=== PATIENT | male | born 1960 ===

== ENCOUNTER 2018-07-11 06:38 | Inpatient (IN) ==
[2018-07-11] MEDS ORDERED: ONDANSETRON 4 MG/2 ML VIAL IV PRN (08:43)
[2018-07-11] MEDS ORDERED: GLUCAGON 1 MG VIAL IM PRN (08:43)
[2018-07-11] MEDS ORDERED: DEXTROSE 50% 25 GM/50 ML VIAL IV PRN (08:43)
[2018-07-11] MEDS ORDERED: FUROSEMIDE 40 MG/4 ML VIAL IV ONE (08:47)
[2018-07-11 09:19] LABS: ABG HCO3 30.2 MMOL/L (20-26); ABG Oxygen Saturation 79.3 % (95-100); ABG PH 7.251 (7.35-7.45); ABG TCO2 34.6 MMOL/L (23-27)
[2018-07-11 09:22] LABS: ABG PCO2 91.3 MM HG (35-48)
[2018-07-11 09:41] LABS: Basophils % 0.6 % (0.0-0.8); Eosinophils # 0.1 10*3/uL (0.0-0.87); Eosinophils % 2.2 % (0.00-10.9); Hemoglobin 16.7 GM/DL (14.0-18.0); Immature Granulocytes % 0.4 %; Immature Granulocytes Absolute 0.02 #; Lymphocytes % 19.4 % (21.2-54.2); Mean Corpuscular HGB Conc 31.5 GM/DL (32-36); Mean Corpuscular Hemoglobin 29 PG (27-34); Mean Corpuscular Volume 92.5 FL (87-102); Mean Platelet Volume 9.5 FL (9.6-12.0); Monocytes # 0.7 10*3/uL (0.11-0.8); Monocytes % 13.6 % (1.7-12.7); Neutrophils # 3.2 10*3/uL (1.4-7.4); Neutrophils % 63.8 % (38.7-73.9); Platelet Count 172 T/CUMM (130-400); Red Blood Count 5.73 MC/CUMM (3.8-5.5); Red Cell Distribution Width 18.5 % (9.3-17.3)
[2018-07-11] MEDS: cefTRIAXone 1,000 MG in SYRINGE 1 EACH IV SCH (10:03)
[2018-07-11] MEDS: PANTOPRAZOLE 40 MG TABLET PO SCH (10:04)
[2018-07-11] MEDS: guaiFENesin/DM ER 600-30 MG TABLET PO SCH ×2 (10:04→22:06)
[2018-07-11] MEDS: AZITHROMYCIN INJ 500 MG in SODIUM CHLORIDE 0.9% 250 ML IV SCH (10:04)
[2018-07-11] MEDS: ERYTHROMYCIN 0.5% OPHT OINT 3.5 GM TUBE BOTH EYES SCH ×4 (10:04→22:06)
[2018-07-11 10:23] LABS: Alanine Aminotransferase 30 U/L (16-61); Albumin 1.7 G/DL (3.4-5.0); Alkaline Phosphatase 109 U/L (45-117); Aspartate Amino Transferase 41 U/L (0-37); Bilirubin,Total < 0.39 MG/DL (0.2-1.0); Blood Urea Nitrogen 23 MG/DL (7-18); Calcium 8.2 MG/DL (8.5-10.1); Cholesterol 260 MG/DL (50-200); Glucose 183 MG/DL (74-106); HDL Cholesterol 102 MG/DL (40-60); Osmolality,Calculated 278.1 MOS/KG (273-304); Potassium 3.9 MMOL/L (3.5-5.1); Risk Ratio 2.55; Sodium 135 MMOL/L (136-145); Total Protein 6.5 G/DL (6.4-8.3); Triglycerides 89 MG/DL (2-150); VLDL CHOLESTEROL 17.8 MG/DL
[2018-07-11 11:01] LABS: Apearance,Urine Slightly Hazy (Clear); Bacteria,Urine Occasional /HPF (Few); Bilirubin,Urine Negative (Negative); Blood, Urine Moderate mg/dL (Negative); Glucose,Urine (UA) 150 mg/dL (Negative); Hyaline Casts,Urine 5 /LPF (0-3); Ketones,Urine Negative (Negative); Nitrite,Urine Negative (Negative); Protein,Urine >=500 MG/DL; RBC,Urine 49 /HPF (0-4); Urine Color Yellow (Yellow); Urine Specific Gravity 1.014 (1.001-1.035); Urine Urobilinogen < 2.0 EU/DL (0.2-1.0); WBC,Urine 9 /HPF (0-6)
[2018-07-11 12:10] LABS: Protein/Creatinine Ratio,Urine 9.4 RATIO
[2018-07-11 12:40] LABS: Allen Test Positive; Pt O2 Delivery Device BIPAP
[2018-07-11 12:41] LABS: ABG Base Excess 11.2 MMOL/L (-2.5-2.5); ABG HCO3 34.5 MMOL/L (20-26); ABG Oxygen Saturation 82.7 % (95-100); ABG PH 7.349 (7.35-7.45); ABG TCO2 35.5 MMOL/L (23-27)
[2018-07-11 12:46] LABS: ABG PCO2 75.7 MM HG (35-48)
[2018-07-11] MEDS: ALBUTEROL/IPRATROPIUM 3 ML NEB RESP TX SCH ×2 (14:50→19:49)
[2018-07-11] MEDS: INSULIN LISPRO 100 UNIT/ML SUBCUT SCH ×3 (14:51→22:04)
[2018-07-11] MEDS: LACTULOSE 20 GM/30 ML UDCUP PO SCH ×3 (14:51→22:08)
[2018-07-11 14:56] LABS: ABG Base Excess 10.3 MMOL/L (-2.5-2.5); ABG HCO3 33.8 MMOL/L (20-26); ABG Oxygen Saturation 89.2 % (95-100); ABG PH 7.308 (7.35-7.45); ABG PO2 62.8 MM HG (80-95); Allen Test Positive
[2018-07-11 15:01] LABS: ABG PCO2 84.4 MM HG (35-48)
[2018-07-11] MEDS ORDERED: hydrALAZINE 20 MG/1 ML VIAL IV PRN (15:14)
[2018-07-11 17:59] LABS: ABG Base Excess 11.9 MMOL/L (-2.5-2.5); ABG HCO3 35.4 MMOL/L (20-26); ABG Oxygen Saturation 87.5 % (95-100); ABG PH 7.374 (7.35-7.45); ABG PO2 55.3 MM HG (80-95); ABG TCO2 35.3 MMOL/L (23-27); Allen Test Positive; Pt O2 Delivery Device BIPAP
[2018-07-11] MEDS: ENOXAPARIN 40 MG/0.4 ML SYRINGE SUBCUT SCH (22:04)
[2018-07-12] MEDS: ALBUTEROL/IPRATROPIUM 3 ML NEB RESP TX SCH ×4 (01:18→19:35)
[2018-07-12] MEDS: LACTULOSE 20 GM/30 ML UDCUP PO SCH ×5 (03:07→21:32)
[2018-07-12 04:53] LABS: ABG Base Excess 13.2 MMOL/L (-2.5-2.5); ABG HCO3 36.8 MMOL/L (20-26); ABG Oxygen Saturation 89.4 % (95-100); ABG PCO2 60.6 MM HG (35-48); ABG PH 7.441 (7.35-7.45); ABG PO2 57.9 MM HG (80-95); ABG TCO2 34.3 MMOL/L (23-27); Allen Test Positive; Pt O2 Delivery Device BIPAP
[2018-07-12 05:24] LABS: Basophils % 0.3 % (0.0-0.8); Eosinophils # 0.1 10*3/uL (0.0-0.87); Eosinophils % 0.8 % (0.00-10.9); Hematocrit 49.5 VOL% (42.0-52.0); Hemoglobin 16.2 GM/DL (14.0-18.0); Immature Granulocytes % 0.1 %; Immature Granulocytes Absolute 0.01 #; Lymphocytes % 13.8 % (21.2-54.2); Mean Corpuscular HGB Conc 32.7 GM/DL (32-36); Mean Corpuscular Hemoglobin 29 PG (27-34); Mean Platelet Volume 9.3 FL (9.6-12.0); Monocytes % 13.8 % (1.7-12.7); Neutrophils # 5.2 10*3/uL (1.4-7.4); Neutrophils % 71.2 % (38.7-73.9); Platelet Count 177 T/CUMM (130-400); Red Blood Count 5.56 MC/CUMM (3.8-5.5); Red Cell Distribution Width 17.9 % (9.3-17.3); White Blood Count 7.3 T/CUMM (4-12)
[2018-07-12 05:41] LABS: Albumin 1.6 G/DL (3.4-5.0); Bilirubin,Total 0.5 MG/DL (0.2-1.0); Calcium 8.4 MG/DL (8.5-10.1); Osmolality,Calculated 281.4 MOS/KG (273-304); Potassium 3.6 MMOL/L (3.5-5.1); Total Protein 5.8 G/DL (6.4-8.3)
[2018-07-12] MEDS: guaiFENesin/DM ER 600-30 MG TABLET PO SCH ×2 (08:25→21:32)
[2018-07-12] MEDS: PANTOPRAZOLE 40 MG TABLET PO SCH (08:25)
[2018-07-12] MEDS: cefTRIAXone 1,000 MG in SYRINGE 1 EACH IV SCH (08:25)
[2018-07-12] MEDS: INSULIN LISPRO 100 UNIT/ML SUBCUT SCH ×4 (08:26→21:32)
[2018-07-12] MEDS: ERYTHROMYCIN 0.5% OPHT OINT 3.5 GM TUBE BOTH EYES SCH ×4 (08:27→21:32)
[2018-07-12] MEDS ORDERED: AZITHROMYCIN INJ 500 MG in SODIUM CHLORIDE 0.9% 250 ML IV SCH (10:30)
[2018-07-12] MEDS: AZITHROMYCIN INJ 500 MG in SODIUM CHLORIDE 0.9% 250 ML IV SCH (11:39)
[2018-07-12] MEDS: LISINOPRIL 10 MG TABLET PO SCH (12:14)
[2018-07-13] MEDS: ALBUTEROL/IPRATROPIUM 3 ML NEB RESP TX SCH ×4 (01:50→19:57)
[2018-07-13 05:22] LABS: Basophils % 0.3 % (0.0-0.8); Eosinophils # 0.1 10*3/uL (0.0-0.87); Eosinophils % 0.6 % (0.00-10.9); Hematocrit 45.6 VOL% (42.0-52.0); Hemoglobin 14.8 GM/DL (14.0-18.0); Immature Granulocytes % 0.4 %; Immature Granulocytes Absolute 0.03 #; Lymphocytes # 1.3 10*3/uL (1.4-4.0); Lymphocytes % 16.1 % (21.2-54.2); Mean Corpuscular HGB Conc 32.5 GM/DL (32-36); Mean Corpuscular Hemoglobin 29 PG (27-34); Mean Corpuscular Volume 89.8 FL (87-102); Mean Platelet Volume 9.3 FL (9.6-12.0); Monocytes # 1.1 10*3/uL (0.11-0.8); Monocytes % 14.3 % (1.7-12.7); Neutrophils # 5.4 10*3/uL (1.4-7.4); Neutrophils % 68.3 % (38.7-73.9); Platelet Count 178 T/CUMM (130-400); Red Blood Count 5.08 MC/CUMM (3.8-5.5); Red Cell Distribution Width 17.6 % (9.3-17.3); White Blood Count 7.9 T/CUMM (4-12)
[2018-07-13 05:32] LABS: INR 0.9; PT Patient Result 10.3 SECS
[2018-07-13 05:47] LABS: Albumin 1.5 G/DL (3.4-5.0); Calcium 7.8 MG/DL (8.5-10.1); Osmolality,Calculated 275.8 MOS/KG (273-304); Potassium 3.2 MMOL/L (3.5-5.1); Total Protein 5.6 G/DL (6.4-8.3)
[2018-07-13] MEDS: INSULIN LISPRO 100 UNIT/ML SUBCUT SCH ×4 (07:59→21:41)
[2018-07-13] MEDS ORDERED: PROPOFOL 200 MG/20 ML VIAL IV ONE (08:04)
[2018-07-13] MEDS ORDERED: LIDOCAINE 1% 5 ML VIAL ONE (08:04)
[2018-07-13] MEDS: cefTRIAXone 1,000 MG in SYRINGE 1 EACH IV SCH (09:01)
[2018-07-13] MEDS: POTASSIUM CHLORIDE 20 MEQ TABLET PO SCH ×3 (09:05→21:43)
[2018-07-13] MEDS: PANTOPRAZOLE 40 MG TABLET PO SCH (09:05)
[2018-07-13] MEDS: guaiFENesin/DM ER 600-30 MG TABLET PO SCH ×2 (09:05→21:31)
[2018-07-13] MEDS: ERYTHROMYCIN 0.5% OPHT OINT 3.5 GM TUBE BOTH EYES SCH (09:06)
[2018-07-13] MEDS: GENTAMICIN 0.3% OPH SOLN 5 ML BOTTLE BOTH EYES SCH ×2 (13:33→18:20)
[2018-07-13] MEDS: LACTULOSE 20 GM/30 ML UDCUP PO SCH ×3 (15:31→21:33)
[2018-07-13] MEDS: LISINOPRIL 10 MG TABLET PO SCH (15:44)
[2018-07-13] MEDS: AZITHROMYCIN 250 MG TABLET PO SCH (17:49)
[2018-07-13] MEDS ORDERED: POTASSIUM CHLORIDE 20 MEQ TABLET PO SCH (21:30)
[2018-07-13] MEDS: ENOXAPARIN 40 MG/0.4 ML SYRINGE SUBCUT SCH (21:32)
[2018-07-14] MEDS: GENTAMICIN 0.3% OPH SOLN 5 ML BOTTLE BOTH EYES SCH ×4 (01:35→17:11)
[2018-07-14] MEDS: ALBUTEROL/IPRATROPIUM 3 ML NEB RESP TX SCH ×4 (01:42→19:50)
[2018-07-14 03:35] LABS: Basophils % 0.2 % (0.0-0.8); Eosinophils # 0.1 10*3/uL (0.0-0.87); Eosinophils % 1.5 % (0.00-10.9); Hematocrit 46.2 VOL% (42.0-52.0); Hemoglobin 14.8 GM/DL (14.0-18.0); Immature Granulocytes % 0.2 %; Immature Granulocytes Absolute 0.01 #; Lymphocytes # 0.8 10*3/uL (1.4-4.0); Lymphocytes % 12.5 % (21.2-54.2); Mean Corpuscular Hemoglobin 29 PG (27-34); Mean Corpuscular Volume 91.7 FL (87-102); Mean Platelet Volume 9.9 FL (9.6-12.0); Monocytes # 1.1 10*3/uL (0.11-0.8); Neutrophils # 4.6 10*3/uL (1.4-7.4); Neutrophils % 68.6 % (38.7-73.9); Platelet Count 138 T/CUMM (130-400); Red Blood Count 5.04 MC/CUMM (3.8-5.5); Red Cell Distribution Width 17.3 % (9.3-17.3); White Blood Count 6.7 T/CUMM (4-12)
[2018-07-14 04:06] LABS: Albumin 1.3 G/DL (3.4-5.0); Bilirubin,Total 0.5 MG/DL (0.2-1.0); Calcium 7.8 MG/DL (8.5-10.1); Osmolality,Calculated 274.1 MOS/KG (273-304); Potassium 3.8 MMOL/L (3.5-5.1); Total Protein 5.4 G/DL (6.4-8.3)
[2018-07-14 04:57] LABS: Band Neutrophils 3 % (0-10); Eosinophils 2 % (0-10); Lymphocytes 15 % (20-55); Platelet Estimate Decreased; Segmented Neutrophils 63 % (50-85); Total Cells Counted 100
[2018-07-14] MEDS: INSULIN LISPRO 100 UNIT/ML SUBCUT SCH ×4 (07:36→20:59)
[2018-07-14] MEDS: PANTOPRAZOLE 40 MG TABLET PO SCH (08:32)
[2018-07-14] MEDS: AZITHROMYCIN 250 MG TABLET PO SCH (08:32)
[2018-07-14] MEDS: guaiFENesin/DM ER 600-30 MG TABLET PO SCH ×2 (08:32→20:59)
[2018-07-14] MEDS: LACTULOSE 20 GM/30 ML UDCUP PO SCH ×3 (08:32→20:59)
[2018-07-14] MEDS: LISINOPRIL 10 MG TABLET PO SCH (08:32)
[2018-07-14] MEDS: cefTRIAXone 1,000 MG in SYRINGE 1 EACH IV SCH (08:33)
[2018-07-14] MEDS: ENOXAPARIN 40 MG/0.4 ML SYRINGE SUBCUT SCH (20:59)
[2018-07-15] MEDS: GENTAMICIN 0.3% OPH SOLN 5 ML BOTTLE BOTH EYES SCH ×4 (00:35→17:19)
[2018-07-15] MEDS: ALBUTEROL/IPRATROPIUM 3 ML NEB RESP TX SCH ×4 (01:02→19:24)
[2018-07-15 05:23] LABS: Basophils % 0.2 % (0.0-0.8); Eosinophils # 0.2 10*3/uL (0.0-0.87); Eosinophils % 2.7 % (0.00-10.9); Hemoglobin 14.2 GM/DL (14.0-18.0); Immature Granulocytes % 0.3 %; Immature Granulocytes Absolute 0.02 #; Lymphocytes % 16.2 % (21.2-54.2); Mean Corpuscular HGB Conc 31.6 GM/DL (32-36); Mean Corpuscular Hemoglobin 29 PG (27-34); Mean Corpuscular Volume 91.1 FL (87-102); Mean Platelet Volume 9.6 FL (9.6-12.0); Monocytes # 0.9 10*3/uL (0.11-0.8); Monocytes % 14.6 % (1.7-12.7); Neutrophils # 4.1 10*3/uL (1.4-7.4); Platelet Count 164 T/CUMM (130-400); Red Blood Count 4.94 MC/CUMM (3.8-5.5); Red Cell Distribution Width 17.1 % (9.3-17.3); White Blood Count 6.2 T/CUMM (4-12)
[2018-07-15 05:40] LABS: Albumin 1.4 G/DL (3.4-5.0); Bilirubin,Total 1.1 MG/DL (0.2-1.0); Calcium 8.3 MG/DL (8.5-10.1); Osmolality,Calculated 274.1 MOS/KG (273-304); Potassium 3.5 MMOL/L (3.5-5.1); Total Protein 5.6 G/DL (6.4-8.3)
[2018-07-15 05:49] LABS: INR 0.9; PT Patient Result 10.2 SECS
[2018-07-15] MEDS: INSULIN LISPRO 100 UNIT/ML SUBCUT SCH ×4 (08:06→22:56)
[2018-07-15] MEDS: PANTOPRAZOLE 40 MG TABLET PO SCH (08:18)
[2018-07-15] MEDS: guaiFENesin/DM ER 600-30 MG TABLET PO SCH ×2 (08:18→22:58)
[2018-07-15] MEDS: LACTULOSE 20 GM/30 ML UDCUP PO SCH ×3 (08:18→22:56)
[2018-07-15] MEDS: cefTRIAXone 1,000 MG in SYRINGE 1 EACH IV SCH (08:18)
[2018-07-15] MEDS: LISINOPRIL 10 MG TABLET PO SCH (08:18)
[2018-07-15] MEDS: AZITHROMYCIN 250 MG TABLET PO SCH (08:18)
[2018-07-15] MEDS: ENOXAPARIN 40 MG/0.4 ML SYRINGE SUBCUT SCH (22:57)
[2018-07-16] MEDS: GENTAMICIN 0.3% OPH SOLN 5 ML BOTTLE BOTH EYES SCH ×4 (00:17→18:06)
[2018-07-16] MEDS: ALBUTEROL/IPRATROPIUM 3 ML NEB RESP TX SCH ×4 (01:10→20:36)
[2018-07-16 05:19] LABS: Calcium 7.8 MG/DL (8.5-10.1); Osmolality,Calculated 277.1 MOS/KG (273-304); Potassium 3.9 MMOL/L (3.5-5.1)
[2018-07-16] MEDS: AZITHROMYCIN 250 MG TABLET PO SCH (10:33)
[2018-07-16] MEDS: INSULIN LISPRO 100 UNIT/ML SUBCUT SCH ×4 (10:34→21:17)
[2018-07-16] MEDS: guaiFENesin/DM ER 600-30 MG TABLET PO SCH ×2 (10:34→21:09)
[2018-07-16] MEDS: PANTOPRAZOLE 40 MG TABLET PO SCH (10:34)
[2018-07-16] MEDS: LISINOPRIL 10 MG TABLET PO SCH (10:34)
[2018-07-16] MEDS: LACTULOSE 20 GM/30 ML UDCUP PO SCH ×3 (10:34→18:06)
[2018-07-16] MEDS: cefTRIAXone 1,000 MG in SYRINGE 1 EACH IV SCH (10:34)
[2018-07-16] MEDS: ENOXAPARIN 40 MG/0.4 ML SYRINGE SUBCUT SCH (21:08)
[2018-07-16] MEDS: RIFAXIMIN 550 MG TABLET PO SCH (21:09)
[2018-07-17] MEDS: ALBUTEROL/IPRATROPIUM 3 ML NEB RESP TX SCH ×4 (01:38→19:41)
[2018-07-17] MEDS: GENTAMICIN 0.3% OPH SOLN 5 ML BOTTLE BOTH EYES SCH ×4 (01:56→18:20)
[2018-07-17] MEDS: LACTULOSE 20 GM/30 ML UDCUP PO SCH ×4 (02:04→18:20)
[2018-07-17] MEDS: INSULIN LISPRO 100 UNIT/ML SUBCUT SCH ×4 (08:58→20:37)
[2018-07-17] MEDS: cefTRIAXone 1,000 MG in SYRINGE 1 EACH IV SCH (09:45)
[2018-07-17] MEDS: LISINOPRIL 10 MG TABLET PO SCH (09:46)
[2018-07-17] MEDS: guaiFENesin/DM ER 600-30 MG TABLET PO SCH ×2 (09:46→20:38)
[2018-07-17] MEDS: AZITHROMYCIN 250 MG TABLET PO SCH (09:46)
[2018-07-17] MEDS: RIFAXIMIN 550 MG TABLET PO SCH ×2 (09:46→20:38)
[2018-07-17] MEDS: PANTOPRAZOLE 40 MG TABLET PO SCH (09:46)
[2018-07-17] MEDS: ENOXAPARIN 40 MG/0.4 ML SYRINGE SUBCUT SCH (20:37)
[2018-07-18] MEDS: LACTULOSE 20 GM/30 ML UDCUP PO SCH ×4 (00:08→17:49)
[2018-07-18] MEDS: GENTAMICIN 0.3% OPH SOLN 5 ML BOTTLE BOTH EYES SCH ×4 (00:08→17:49)
[2018-07-18] MEDS: ALBUTEROL/IPRATROPIUM 3 ML NEB RESP TX SCH ×4 (00:42→19:23)
[2018-07-18 05:43] LABS: Calcium 8.2 MG/DL (8.5-10.1); Osmolality,Calculated 281.5 MOS/KG (273-304); Potassium 3.6 MMOL/L (3.5-5.1)
[2018-07-18] MEDS: INSULIN LISPRO 100 UNIT/ML SUBCUT SCH ×4 (08:43→21:05)
[2018-07-18] MEDS: guaiFENesin/DM ER 600-30 MG TABLET PO SCH ×2 (09:27→21:03)
[2018-07-18] MEDS: LISINOPRIL 10 MG TABLET PO SCH (09:27)
[2018-07-18] MEDS: AZITHROMYCIN 250 MG TABLET PO SCH (09:27)
[2018-07-18] MEDS: cefTRIAXone 1,000 MG in SYRINGE 1 EACH IV SCH (09:27)
[2018-07-18] MEDS: PANTOPRAZOLE 40 MG TABLET PO SCH (09:27)
[2018-07-18] MEDS: RIFAXIMIN 550 MG TABLET PO SCH ×2 (09:27→21:03)
[2018-07-18] MEDS: ENOXAPARIN 40 MG/0.4 ML SYRINGE SUBCUT SCH (21:03)
[2018-07-19] MEDS: LACTULOSE 20 GM/30 ML UDCUP PO SCH ×4 (00:18→17:26)
[2018-07-19] MEDS: GENTAMICIN 0.3% OPH SOLN 5 ML BOTTLE BOTH EYES SCH ×5 (00:19→23:38)
[2018-07-19] MEDS: ALBUTEROL/IPRATROPIUM 3 ML NEB RESP TX SCH ×4 (01:04→20:27)
[2018-07-19 06:10] LABS: Calcium 8.2 MG/DL (8.5-10.1); Osmolality,Calculated 278.5 MOS/KG (273-304); Potassium 3.5 MMOL/L (3.5-5.1)
[2018-07-19] MEDS: LEVOTHYROXINE 25 MCG TABLET PO SCH (06:37)
[2018-07-19] MEDS: AZITHROMYCIN 250 MG TABLET PO SCH (09:30)
[2018-07-19] MEDS: guaiFENesin/DM ER 600-30 MG TABLET PO SCH ×2 (09:30→23:31)
[2018-07-19] MEDS: INSULIN LISPRO 100 UNIT/ML SUBCUT SCH ×4 (09:30→21:46)
[2018-07-19] MEDS: SPIRONOLACTONE 25 MG TABLET PO SCH ×2 (09:31→23:30)
[2018-07-19] MEDS: PANTOPRAZOLE 40 MG TABLET PO SCH (09:31)
[2018-07-19] MEDS: RIFAXIMIN 550 MG TABLET PO SCH ×2 (09:31→23:31)
[2018-07-19] MEDS: LISINOPRIL 10 MG TABLET PO SCH (09:31)
[2018-07-19] MEDS: ENOXAPARIN 40 MG/0.4 ML SYRINGE SUBCUT SCH (23:30)
[2018-07-20] MEDS: ALBUTEROL/IPRATROPIUM 3 ML NEB RESP TX SCH ×4 (00:29→19:17)
[2018-07-20] MEDS: LACTULOSE 20 GM/30 ML UDCUP PO SCH ×5 (00:56→23:52)
[2018-07-20 05:24] LABS: Basophils % 0.4 % (0.0-0.8); Eosinophils # 0.3 10*3/uL (0.0-0.87); Eosinophils % 5.4 % (0.00-10.9); Hematocrit 43.1 VOL% (42.0-52.0); Hemoglobin 13.7 GM/DL (14.0-18.0); Immature Granulocytes % 0.2 %; Immature Granulocytes Absolute 0.01 #; Lymphocytes % 18.8 % (21.2-54.2); Mean Corpuscular HGB Conc 31.8 GM/DL (32-36); Mean Corpuscular Hemoglobin 29 PG (27-34); Mean Corpuscular Volume 91.5 FL (87-102); Mean Platelet Volume 9.4 FL (9.6-12.0); Monocytes # 0.8 10*3/uL (0.11-0.8); Monocytes % 14.6 % (1.7-12.7); Neutrophils # 3.4 10*3/uL (1.4-7.4); Neutrophils % 60.6 % (38.7-73.9); Platelet Count 168 T/CUMM (130-400); Red Blood Count 4.71 MC/CUMM (3.8-5.5); Red Cell Distribution Width 16.5 % (9.3-17.3); White Blood Count 5.5 T/CUMM (4-12)
[2018-07-20 06:03] LABS: Platelet Estimate Adequate; Polychromasia Few
[2018-07-20 06:05] LABS: Calcium 8.1 MG/DL (8.5-10.1); Osmolality,Calculated 278.4 MOS/KG (273-304); Potassium 3.1 MMOL/L (3.5-5.1)
[2018-07-20] MEDS: LEVOTHYROXINE 25 MCG TABLET PO SCH (06:13)
[2018-07-20] MEDS: GENTAMICIN 0.3% OPH SOLN 5 ML BOTTLE BOTH EYES SCH (06:13)
[2018-07-20] MEDS: INSULIN LISPRO 100 UNIT/ML SUBCUT SCH ×4 (10:44→21:14)
[2018-07-20] MEDS: LISINOPRIL 10 MG TABLET PO SCH (11:43)
[2018-07-20] MEDS: SPIRONOLACTONE 25 MG TABLET PO SCH ×2 (11:43→21:14)
[2018-07-20] MEDS: AZITHROMYCIN 250 MG TABLET PO SCH (11:43)
[2018-07-20] MEDS: PANTOPRAZOLE 40 MG TABLET PO SCH (11:43)
[2018-07-20] MEDS: guaiFENesin/DM ER 600-30 MG TABLET PO SCH ×2 (11:43→21:13)
[2018-07-20] MEDS: RIFAXIMIN 550 MG TABLET PO SCH ×2 (11:43→21:13)
[2018-07-20] MEDS: POTASSIUM CHLORIDE 20 MEQ TABLET PO SCH (21:14)
[2018-07-20] MEDS: ENOXAPARIN 40 MG/0.4 ML SYRINGE SUBCUT SCH (21:14)
[2018-07-21] MEDS: ALBUTEROL/IPRATROPIUM 3 ML NEB RESP TX SCH ×4 (01:06→19:18)
[2018-07-21 05:48] LABS: Basophils % 0.2 % (0.0-0.8); Eosinophils # 0.2 10*3/uL (0.0-0.87); Eosinophils % 3.8 % (0.00-10.9); Hemoglobin 13.7 GM/DL (14.0-18.0); Immature Granulocytes % 0.3 %; Immature Granulocytes Absolute 0.02 #; Lymphocytes # 0.9 10*3/uL (1.4-4.0); Lymphocytes % 15.6 % (21.2-54.2); Mean Corpuscular HGB Conc 31.9 GM/DL (32-36); Mean Corpuscular Hemoglobin 29 PG (27-34); Mean Corpuscular Volume 90.7 FL (87-102); Mean Platelet Volume 9.5 FL (9.6-12.0); Monocytes # 0.9 10*3/uL (0.11-0.8); Monocytes % 14.9 % (1.7-12.7); Neutrophils # 3.8 10*3/uL (1.4-7.4); Neutrophils % 65.2 % (38.7-73.9); Platelet Count 169 T/CUMM (130-400); Red Blood Count 4.74 MC/CUMM (3.8-5.5); Red Cell Distribution Width 16.6 % (9.3-17.3); White Blood Count 5.8 T/CUMM (4-12)
[2018-07-21] MEDS: LACTULOSE 20 GM/30 ML UDCUP PO SCH ×3 (06:05→17:39)
[2018-07-21] MEDS: LEVOTHYROXINE 25 MCG TABLET PO SCH (06:05)
[2018-07-21 06:15] LABS: Calcium 8.2 MG/DL (8.5-10.1); Osmolality,Calculated 273.7 MOS/KG (273-304); Potassium 3.2 MMOL/L (3.5-5.1)
[2018-07-21] MEDS: POTASSIUM CHLORIDE 20 MEQ TABLET PO SCH ×2 (08:28→23:19)
[2018-07-21] MEDS: INSULIN LISPRO 100 UNIT/ML SUBCUT SCH ×4 (08:29→23:18)
[2018-07-21] MEDS: RIFAXIMIN 550 MG TABLET PO SCH ×2 (08:29→23:19)
[2018-07-21] MEDS: guaiFENesin/DM ER 600-30 MG TABLET PO SCH ×2 (08:29→23:20)
[2018-07-21] MEDS: PANTOPRAZOLE 40 MG TABLET PO SCH (08:29)
[2018-07-21] MEDS: LISINOPRIL 10 MG TABLET PO SCH (08:29)
[2018-07-21] MEDS: SPIRONOLACTONE 25 MG TABLET PO SCH ×2 (08:29→23:19)
[2018-07-21] MEDS: ENOXAPARIN 40 MG/0.4 ML SYRINGE SUBCUT SCH (23:20)
[2018-07-22] MEDS: ALBUTEROL/IPRATROPIUM 3 ML NEB RESP TX SCH ×4 (00:15→19:51)
[2018-07-22] MEDS: LACTULOSE 20 GM/30 ML UDCUP PO SCH ×4 (00:38→17:27)
[2018-07-22] MEDS: LEVOTHYROXINE 25 MCG TABLET PO SCH (07:58)
[2018-07-22] MEDS: INSULIN LISPRO 100 UNIT/ML SUBCUT SCH ×4 (08:39→22:06)
[2018-07-22] MEDS: LISINOPRIL 10 MG TABLET PO SCH (10:31)
[2018-07-22] MEDS: POTASSIUM CHLORIDE 20 MEQ TABLET PO SCH ×4 (10:31→22:06)
[2018-07-22] MEDS: RIFAXIMIN 550 MG TABLET PO SCH ×2 (10:31→20:15)
[2018-07-22] MEDS: SPIRONOLACTONE 25 MG TABLET PO SCH ×2 (10:31→20:15)
[2018-07-22] MEDS: guaiFENesin/DM ER 600-30 MG TABLET PO SCH ×2 (10:31→20:15)
[2018-07-22] MEDS: PANTOPRAZOLE 40 MG TABLET PO SCH (10:31)
[2018-07-22] MEDS: ENOXAPARIN 40 MG/0.4 ML SYRINGE SUBCUT SCH (20:14)
[2018-07-23] MEDS: LACTULOSE 20 GM/30 ML UDCUP PO SCH ×3 (00:36→12:14)
[2018-07-23] MEDS: ALBUTEROL/IPRATROPIUM 3 ML NEB RESP TX SCH ×2 (00:45→07:24)
[2018-07-23] MEDS: POTASSIUM CHLORIDE 20 MEQ TABLET PO SCH (02:03)
[2018-07-23 06:13] LABS: Calcium 8.1 MG/DL (8.5-10.1); Osmolality,Calculated 272.7 MOS/KG (273-304); Potassium 4.7 MMOL/L (3.5-5.1)
[2018-07-23] MEDS: LEVOTHYROXINE 25 MCG TABLET PO SCH (06:25)
[2018-07-23] MEDS: INSULIN LISPRO 100 UNIT/ML SUBCUT SCH ×2 (08:12→12:14)
[2018-07-23 08:18] VITALS: BP 169/85
[2018-07-23] MEDS ORDERED: MAGNESIUM SULF RIDER 2 GM in PREMIX 1 EACH IV PRN (08:59)
[2018-07-23] MEDS ORDERED: MAGNESIUM SULF RIDER 4 GM in PREMIX 1 EACH IV PRN (08:59)
[2018-07-23] MEDS: LISINOPRIL 10 MG TABLET PO SCH (09:06)
[2018-07-23] MEDS: RIFAXIMIN 550 MG TABLET PO SCH (09:06)
[2018-07-23] MEDS: guaiFENesin/DM ER 600-30 MG TABLET PO SCH (09:06)
[2018-07-23] MEDS: SPIRONOLACTONE 25 MG TABLET PO SCH (09:06)
[2018-07-23] MEDS: PANTOPRAZOLE 40 MG TABLET PO SCH (09:06)
== END 2018-07-23 13:24 | disposition home or self-care (01) | DRG 279 ==
LOC: N.5E 08:17 → SUATTDRO 08:17 → N.ICU 11:13 → N.2E 07-15 17:55
PROVIDERS: ADMIT Internal Medicine; ATTEND Internal Medicine Cardiovascular Disease

== ENCOUNTER 2019-03-12 23:38 | Inpatient (IN) ==
[2019-03-13] MEDS ORDERED: DEXTROSE 50% 25 GM/50 ML VIAL IV PRN (02:41)
[2019-03-13] MEDS ORDERED: GLUCAGON 1 MG VIAL IM PRN (02:41)
[2019-03-13] MEDS ORDERED: hydrALAZINE 20 MG/1 ML VIAL IV PRN (02:58)
[2019-03-13 03:20] LABS: Basophils % 0.5 % (0.0-0.8); Eosinophils # 0.1 10*3/uL (0.0-0.87); Eosinophils % 2.2 % (0.00-10.9); Hematocrit 43.7 VOL% (42.0-52.0); Hemoglobin 14.4 GM/DL (14.0-18.0); Immature Granulocytes % 0.3 %; Immature Granulocytes Absolute 0.02 #; Lymphocytes # 1.2 10*3/uL (1.4-4.0); Mean Corpuscular Volume 96.3 FL (87-102); Mean Platelet Volume 9.2 FL (9.6-12.0); Monocytes % 12.1 % (1.7-12.7); Neutrophils % 64.9 % (38.7-73.9); Platelet Count 183 T/CUMM (130-400); Red Blood Count 4.54 MC/CUMM (3.8-5.5); Red Cell Distribution Width 14.6 % (9.3-17.3); White Blood Count 5.9 T/CUMM (4-12)
[2019-03-13 03:38] LABS: Albumin 1.9 G/DL (3.4-5.0); Bilirubin,Total 0.4 MG/DL (0.2-1.0); Calcium 8.1 MG/DL (8.5-10.1); Osmolality,Calculated 282.4 MOS/KG (273-304); Total Protein 6.3 G/DL (6.4-8.3)
[2019-03-13 03:40] LABS: CKMB % 2.6 %; Troponin I < 0.015 NG/ML (0.00-0.045)
[2019-03-13] MEDS ORDERED: hydrALAZINE 20 MG/1 ML VIAL IV SCH (06:00)
[2019-03-13] MEDS: POTASSIUM CHLORIDE 20 MEQ TABLET PO SCH (08:52)
[2019-03-13] MEDS: ERGOCALCIFEROL 50,000 UNIT CAPSULE PO SCH (12:10)
[2019-03-13] MEDS: GABAPENTIN 300 MG CAPSULE PO SCH ×2 (14:12→21:12)
[2019-03-13] MEDS: hydrALAZINE 25 MG TABLET PO SCH ×2 (14:12→21:12)
[2019-03-13] MEDS: FUROSEMIDE 40 MG/4 ML VIAL IV SCH (16:55)
[2019-03-13] MEDS ORDERED: INSULIN GLARGINE 100 UNIT/ML SUBCUT SCH (17:00)
[2019-03-14 05:35] LABS: Basophils % 0.5 % (0.0-0.8); Eosinophils # 0.4 10*3/uL (0.0-0.87); Eosinophils % 6.8 % (0.00-10.9); Hematocrit 40.3 VOL% (42.0-52.0); Immature Granulocytes % 0.2 %; Immature Granulocytes Absolute 0.01 #; Lymphocytes # 1.4 10*3/uL (1.4-4.0); Lymphocytes % 24.5 % (21.2-54.2); Mean Corpuscular HGB Conc 32.3 GM/DL (32-36); Mean Corpuscular Volume 97.6 FL (87-102); Mean Platelet Volume 9.8 FL (9.6-12.0); Monocytes % 13.9 % (1.7-12.7); Neutrophils % 54.1 % (38.7-73.9); Platelet Count 179 T/CUMM (130-400); Red Blood Count 4.13 MC/CUMM (3.8-5.5); Red Cell Distribution Width 14.8 % (9.3-17.3); White Blood Count 5.8 T/CUMM (4-12)
[2019-03-14 06:11] LABS: Osmolality,Calculated 284.1 MOS/KG (273-304)
[2019-03-14] MEDS: LEVOTHYROXINE 25 MCG TABLET PO SCH (06:35)
[2019-03-14] MEDS: POTASSIUM CHLORIDE 20 MEQ TABLET PO SCH (08:54)
[2019-03-14] MEDS: GABAPENTIN 300 MG CAPSULE PO SCH ×3 (08:54→21:09)
[2019-03-14] MEDS: amLODIPine 10 MG TABLET PO SCH (08:54)
[2019-03-14] MEDS: GLIMEPIRIDE 2 MG TABLET PO SCH (08:54)
[2019-03-14] MEDS: hydrALAZINE 25 MG TABLET PO SCH ×3 (08:54→21:09)
[2019-03-14] MEDS: FUROSEMIDE 40 MG/4 ML VIAL IV SCH ×2 (08:55→17:19)
[2019-03-14] MEDS: INSULIN REGULAR 100 UNIT/ML SUBCUT SCH ×3 (12:07→21:09)
[2019-03-15] MEDS: LEVOTHYROXINE 25 MCG TABLET PO SCH (06:32)
[2019-03-15] MEDS: FUROSEMIDE 40 MG/4 ML VIAL IV SCH ×2 (08:41→16:49)
[2019-03-15] MEDS: POTASSIUM CHLORIDE 20 MEQ TABLET PO SCH (08:45)
[2019-03-15] MEDS: amLODIPine 10 MG TABLET PO SCH (08:46)
[2019-03-15] MEDS: GABAPENTIN 300 MG CAPSULE PO SCH ×3 (08:46→20:13)
[2019-03-15] MEDS: hydrALAZINE 25 MG TABLET PO SCH ×3 (08:46→20:13)
[2019-03-15] MEDS: GLIMEPIRIDE 2 MG TABLET PO SCH (08:47)
[2019-03-15] MEDS: INSULIN REGULAR 100 UNIT/ML SUBCUT SCH ×4 (09:17→20:13)
[2019-03-16] MEDS: LEVOTHYROXINE 25 MCG TABLET PO SCH (06:45)
[2019-03-16 07:36] LABS: Calcium 7.9 MG/DL (8.5-10.1); Osmolality,Calculated 288.1 MOS/KG (273-304)
[2019-03-16] MEDS: INSULIN REGULAR 100 UNIT/ML SUBCUT SCH ×4 (08:43→22:16)
[2019-03-16] MEDS: FUROSEMIDE 40 MG/4 ML VIAL IV SCH ×2 (09:52→15:13)
[2019-03-16] MEDS: GLIMEPIRIDE 2 MG TABLET PO SCH (09:57)
[2019-03-16] MEDS: GABAPENTIN 300 MG CAPSULE PO SCH ×3 (09:57→20:56)
[2019-03-16] MEDS: POTASSIUM CHLORIDE 20 MEQ TABLET PO SCH (09:57)
[2019-03-16] MEDS: hydrALAZINE 25 MG TABLET PO SCH ×3 (09:57→20:56)
[2019-03-16] MEDS: amLODIPine 10 MG TABLET PO SCH (09:57)
[2019-03-16 10:01] LABS: Allen Test Positive
[2019-03-16 10:02] LABS: ABG Base Excess 3.7 MMOL/L (-2.5-2.5); ABG HCO3 27.4 MMOL/L (20-26); ABG Oxygen Saturation 86.7 % (95-100); ABG PCO2 68.8 MM HG (35-48); ABG PO2 55.6 MM HG (80-95); ABG TCO2 29.1 MMOL/L (23-27)
[2019-03-16] MEDS: LEVOTHYROXINE 50 MCG TABLET PO SCH (13:08)
[2019-03-16] MEDS: LACTULOSE 20 GM/30 ML UDCUP PO SCH ×2 (18:14→23:49)
[2019-03-17 05:15] LABS: Calcium 7.8 MG/DL (8.5-10.1); Osmolality,Calculated 289.1 MOS/KG (273-304)
[2019-03-17] MEDS: LACTULOSE 20 GM/30 ML UDCUP PO SCH ×3 (06:33→17:33)
[2019-03-17] MEDS: LEVOTHYROXINE 50 MCG TABLET PO SCH (06:33)
[2019-03-17] MEDS: RIFAXIMIN 550 MG TABLET PO SCH ×2 (09:40→21:58)
[2019-03-17] MEDS: GABAPENTIN 300 MG CAPSULE PO SCH ×3 (09:40→21:59)
[2019-03-17] MEDS: hydrALAZINE 25 MG TABLET PO SCH ×3 (09:40→21:58)
[2019-03-17] MEDS: FUROSEMIDE 40 MG/4 ML VIAL IV SCH ×2 (09:41→15:28)
[2019-03-17] MEDS: POTASSIUM CHLORIDE 20 MEQ TABLET PO SCH (09:41)
[2019-03-17] MEDS: amLODIPine 10 MG TABLET PO SCH (09:48)
[2019-03-17] MEDS: INSULIN REGULAR 100 UNIT/ML SUBCUT SCH ×4 (14:40→22:07)
[2019-03-18] MEDS: LACTULOSE 20 GM/30 ML UDCUP PO SCH ×4 (00:32→17:08)
[2019-03-18 05:15] LABS: Osmolality,Calculated 285.4 MOS/KG (273-304)
[2019-03-18] MEDS: LEVOTHYROXINE 50 MCG TABLET PO SCH (08:12)
[2019-03-18] MEDS: RIFAXIMIN 550 MG TABLET PO SCH ×2 (09:58→22:21)
[2019-03-18] MEDS: amLODIPine 10 MG TABLET PO SCH (09:58)
[2019-03-18] MEDS: GABAPENTIN 300 MG CAPSULE PO SCH ×3 (09:58→22:21)
[2019-03-18] MEDS: hydrALAZINE 25 MG TABLET PO SCH ×3 (09:58→22:21)
[2019-03-18] MEDS: INSULIN REGULAR 100 UNIT/ML SUBCUT SCH ×4 (09:59→22:40)
[2019-03-18] MEDS: FUROSEMIDE 40 MG/4 ML VIAL IV SCH (10:00)
[2019-03-18] MEDS: POTASSIUM CHLORIDE 20 MEQ TABLET PO SCH (10:01)
[2019-03-18] MEDS: SPIRONOLACTONE 100 MG TABLET PO SCH ×2 (10:05→22:20)
[2019-03-19] MEDS: POLYVINYL ALCOHOL 1.4% OPH SOLN 15 ML BOTTLE BOTH EYES PRN ×2 (00:12→21:53)
[2019-03-19] MEDS: LACTULOSE 20 GM/30 ML UDCUP PO SCH ×4 (00:22→17:04)
[2019-03-19] MEDS ORDERED: DEXTROSE 10% 250 ML BAG IV PRN ×2 (04:57)
[2019-03-19 06:35] LABS: Calcium 8.3 MG/DL (8.5-10.1); Osmolality,Calculated 287.7 MOS/KG (273-304)
[2019-03-19] MEDS: INSULIN REGULAR 100 UNIT/ML SUBCUT SCH ×4 (08:19→21:42)
[2019-03-19] MEDS ORDERED: FUROSEMIDE 20 MG TABLET PO SCH (09:00)
[2019-03-19] MEDS: GABAPENTIN 300 MG CAPSULE PO SCH ×3 (09:42→21:41)
[2019-03-19] MEDS: amLODIPine 10 MG TABLET PO SCH (09:43)
[2019-03-19] MEDS: hydrALAZINE 25 MG TABLET PO SCH ×3 (09:43→21:41)
[2019-03-19] MEDS: SPIRONOLACTONE 100 MG TABLET PO SCH ×2 (09:43→21:41)
[2019-03-19] MEDS: LEVOTHYROXINE 50 MCG TABLET PO SCH (09:43)
[2019-03-19] MEDS: RIFAXIMIN 550 MG TABLET PO SCH ×2 (09:43→21:41)
[2019-03-19] MEDS ORDERED: FUROSEMIDE 40 MG/4 ML VIAL IV SCH (16:00)
[2019-03-19] MEDS: FUROSEMIDE 80 MG TABLET PO SCH (17:03)
[2019-03-20 03:50] LABS: Basophils % 0.3 % (0.0-0.8); Eosinophils # 0.5 10*3/uL (0.0-0.87); Eosinophils % 7.1 % (0.00-10.9); Hematocrit 37.1 VOL% (42.0-52.0); Hemoglobin 11.2 GM/DL (14.0-18.0); Immature Granulocytes % 0.1 %; Immature Granulocytes Absolute 0.01 #; Lymphocytes % 14.2 % (21.2-54.2); Mean Corpuscular HGB Conc 30.2 GM/DL (32-36); Mean Corpuscular Volume 100.8 FL (87-102); Mean Platelet Volume 9.4 FL (9.6-12.0); Monocytes % 15.2 % (1.7-12.7); Neutrophils % 63.1 % (38.7-73.9); Platelet Count 182 T/CUMM (130-400); Red Blood Count 3.68 MC/CUMM (3.8-5.5); Red Cell Distribution Width 14.6 % (9.3-17.3); White Blood Count 7.2 T/CUMM (4-12)
[2019-03-20 04:10] LABS: Albumin 1.9 G/DL (3.4-5.0); Bilirubin,Total 0.4 MG/DL (0.2-1.0); Calcium 8.4 MG/DL (8.5-10.1); Osmolality,Calculated 289.4 MOS/KG (273-304)
[2019-03-20] MEDS: LACTULOSE 20 GM/30 ML UDCUP PO SCH ×4 (05:13→17:36)
[2019-03-20] MEDS: INSULIN REGULAR 100 UNIT/ML SUBCUT SCH ×4 (08:39→21:23)
[2019-03-20] MEDS: LEVOTHYROXINE 50 MCG TABLET PO SCH (09:06)
[2019-03-20] MEDS: FUROSEMIDE 80 MG TABLET PO SCH ×2 (09:06→15:23)
[2019-03-20] MEDS: metOLazone 5 MG TABLET PO SCH (09:06)
[2019-03-20] MEDS: GABAPENTIN 300 MG CAPSULE PO SCH ×3 (09:07→20:49)
[2019-03-20] MEDS: SPIRONOLACTONE 100 MG TABLET PO SCH ×2 (09:07→20:49)
[2019-03-20] MEDS: amLODIPine 10 MG TABLET PO SCH (09:07)
[2019-03-20] MEDS: RIFAXIMIN 550 MG TABLET PO SCH ×2 (09:07→20:49)
[2019-03-20] MEDS: hydrALAZINE 25 MG TABLET PO SCH ×3 (09:07→20:49)
[2019-03-20] MEDS: ERGOCALCIFEROL 50,000 UNIT CAPSULE PO SCH (12:17)
[2019-03-20] MEDS ORDERED: BISACODYL 10 MG SUPP RECTAL PRN (15:46)
[2019-03-20] MEDS: ALBUMIN 25% 25 GM in PREMIX 1 EACH IV SCH (16:15)
[2019-03-20] MEDS: METOCLOPRAMIDE 10 MG/10 ML UDCUP PO SCH (16:15)
[2019-03-20] MEDS: FUROSEMIDE 40 MG/4 ML VIAL IV SCH (16:15)
[2019-03-21] MEDS: LACTULOSE 20 GM/30 ML UDCUP PO SCH ×5 (00:22→17:53)
[2019-03-21] MEDS: FUROSEMIDE 40 MG/4 ML VIAL IV SCH ×3 (00:22→17:45)
[2019-03-21] MEDS: METOCLOPRAMIDE 10 MG/10 ML UDCUP PO SCH ×3 (00:22→17:54)
[2019-03-21] MEDS: ALBUMIN 25% 25 GM in PREMIX 1 EACH IV SCH ×2 (04:31→17:53)
[2019-03-21] MEDS: LEVOTHYROXINE 50 MCG TABLET PO SCH (06:47)
[2019-03-21 08:49] LABS: Basophils % 0.5 % (0.0-0.8); Eosinophils # 0.2 10*3/uL (0.0-0.87); Eosinophils % 3.1 % (0.00-10.9); Hematocrit 35.4 VOL% (42.0-52.0); Hemoglobin 10.8 GM/DL (14.0-18.0); Immature Granulocytes % 0.5 %; Immature Granulocytes Absolute 0.03 #; Lymphocytes % 15.2 % (21.2-54.2); Mean Corpuscular HGB Conc 30.5 GM/DL (32-36); Mean Corpuscular Volume 100.6 FL (87-102); Mean Platelet Volume 9.5 FL (9.6-12.0); Monocytes % 14.3 % (1.7-12.7); Neutrophils % 66.4 % (38.7-73.9); Platelet Count 190 T/CUMM (130-400); Red Blood Count 3.52 MC/CUMM (3.8-5.5); Red Cell Distribution Width 14.6 % (9.3-17.3); White Blood Count 6.5 T/CUMM (4-12)
[2019-03-21 09:17] LABS: Albumin 2.5 G/DL (3.4-5.0); Bilirubin,Total 0.5 MG/DL (0.2-1.0); Calcium 9.1 MG/DL (8.5-10.1); Osmolality,Calculated 289.5 MOS/KG (273-304); Total Protein 6.6 G/DL (6.4-8.3)
[2019-03-21] MEDS: RIFAXIMIN 550 MG TABLET PO SCH ×2 (09:23→21:00)
[2019-03-21] MEDS: GABAPENTIN 300 MG CAPSULE PO SCH ×2 (09:23→14:49)
[2019-03-21] MEDS: hydrALAZINE 25 MG TABLET PO SCH ×3 (09:23→21:00)
[2019-03-21] MEDS: SPIRONOLACTONE 100 MG TABLET PO SCH ×2 (09:23→21:00)
[2019-03-21] MEDS: amLODIPine 10 MG TABLET PO SCH (09:23)
[2019-03-21] MEDS: metOLazone 5 MG TABLET PO SCH (09:24)
[2019-03-21] MEDS: INSULIN REGULAR 100 UNIT/ML SUBCUT SCH ×2 (17:49→17:50)
[2019-03-21] MEDS: ALBUTEROL/IPRATROPIUM 3 ML NEB RESP TX SCH (19:10)
[2019-03-22] MEDS: METOCLOPRAMIDE 10 MG/10 ML UDCUP PO SCH ×3 (01:00→16:02)
[2019-03-22] MEDS: LACTULOSE 20 GM/30 ML UDCUP PO SCH ×4 (01:00→18:39)
[2019-03-22] MEDS: FUROSEMIDE 40 MG/4 ML VIAL IV SCH ×2 (01:00→07:52)
[2019-03-22] MEDS: ALBUTEROL/IPRATROPIUM 3 ML NEB RESP TX SCH ×4 (01:47→18:50)
[2019-03-22 05:16] LABS: Basophils % 0.4 % (0.0-0.8); Eosinophils # 0.3 10*3/uL (0.0-0.87); Eosinophils % 3.7 % (0.00-10.9); Hematocrit 36.4 VOL% (42.0-52.0); Immature Granulocytes % 0.7 %; Immature Granulocytes Absolute 0.05 #; Lymphocytes % 13.3 % (21.2-54.2); Mean Corpuscular HGB Conc 30.2 GM/DL (32-36); Mean Corpuscular Volume 102.5 FL (87-102); Mean Platelet Volume 9.4 FL (9.6-12.0); Monocytes % 18.3 % (1.7-12.7); Neutrophils % 63.6 % (38.7-73.9); Platelet Count 201 T/CUMM (130-400); Red Blood Count 3.55 MC/CUMM (3.8-5.5); Red Cell Distribution Width 14.5 % (9.3-17.3); White Blood Count 7.5 T/CUMM (4-12)
[2019-03-22 05:48] LABS: Albumin 2.3 G/DL (3.4-5.0); Bilirubin,Total 0.5 MG/DL (0.2-1.0); Calcium 8.8 MG/DL (8.5-10.1); Osmolality,Calculated 287.7 MOS/KG (273-304); Total Protein 6.7 G/DL (6.4-8.3)
[2019-03-22] MEDS: INSULIN REGULAR 100 UNIT/ML SUBCUT SCH ×5 (07:13→20:00)
[2019-03-22] MEDS: GABAPENTIN 300 MG CAPSULE PO SCH ×4 (07:14→23:01)
[2019-03-22] MEDS: ALBUMIN 25% 25 GM in PREMIX 1 EACH IV SCH ×2 (07:43→16:04)
[2019-03-22] MEDS: LEVOTHYROXINE 50 MCG TABLET PO SCH (07:52)
[2019-03-22] MEDS: metOLazone 5 MG TABLET PO SCH (08:48)
[2019-03-22] MEDS: THEOPHYLLINE ER (24 HR) 400 MG CAPSULE PO SCH (08:48)
[2019-03-22] MEDS: SPIRONOLACTONE 100 MG TABLET PO SCH ×2 (08:48→23:01)
[2019-03-22] MEDS: hydrALAZINE 25 MG TABLET PO SCH ×3 (08:48→21:00)
[2019-03-22] MEDS: amLODIPine 10 MG TABLET PO SCH (08:48)
[2019-03-22] MEDS: RIFAXIMIN 550 MG TABLET PO SCH ×2 (08:48→23:01)
[2019-03-22] MEDS ORDERED: TUBERCULIN SKIN TEST 0.1 ML SYRINGE INTRADERM ONE (14:01)
[2019-03-22] MEDS: FUROSEMIDE 100 MG/10 ML VIAL IV SCH (16:00)
[2019-03-23] MEDS: LACTULOSE 20 GM/30 ML UDCUP PO SCH ×2 (00:30→11:38)
[2019-03-23] MEDS: ALBUTEROL/IPRATROPIUM 3 ML NEB RESP TX SCH ×2 (00:30→07:13)
[2019-03-23] MEDS ORDERED: ACETAMINOPHEN 325 MG TABLET PO PRN (01:01)
[2019-03-23] MEDS: METOCLOPRAMIDE 10 MG/10 ML UDCUP PO SCH ×2 (01:09→07:46)
[2019-03-23] MEDS: ALBUMIN 25% 25 GM in PREMIX 1 EACH IV SCH (04:49)
[2019-03-23] MEDS: LEVOTHYROXINE 50 MCG TABLET PO SCH (07:46)
[2019-03-23] MEDS: FUROSEMIDE 100 MG/10 ML VIAL IV SCH ×2 (07:47→15:35)
[2019-03-23] MEDS: INSULIN REGULAR 100 UNIT/ML SUBCUT SCH ×2 (07:52→11:55)
[2019-03-23 08:06] LABS: Basophils % 0.4 % (0.0-0.8); Eosinophils # 0.2 10*3/uL (0.0-0.87); Eosinophils % 2.8 % (0.00-10.9); Hematocrit 34.3 VOL% (42.0-52.0); Hemoglobin 10.9 GM/DL (14.0-18.0); Immature Granulocytes Absolute 0.07 #; Lymphocytes # 0.8 10*3/uL (1.4-4.0); Lymphocytes % 11.1 % (21.2-54.2); Mean Corpuscular HGB Conc 31.8 GM/DL (32-36); Mean Corpuscular Volume 100.3 FL (87-102); Mean Platelet Volume 9.7 FL (9.6-12.0); Monocytes % 16.4 % (1.7-12.7); Neutrophils % 68.3 % (38.7-73.9); Platelet Count 211 T/CUMM (130-400); Red Blood Count 3.42 MC/CUMM (3.8-5.5); Red Cell Distribution Width 14.7 % (9.3-17.3); White Blood Count 7.2 T/CUMM (4-12)
[2019-03-23 08:29] LABS: Eosinophils 3 % (0-10); Hypochromasia 1+; Lymphocytes 13 % (20-55); Platelet Estimate Adequate; Segmented Neutrophils 64 % (50-85); Total Cells Counted 100
[2019-03-23 08:29] LABS: Albumin 2.8 G/DL (3.4-5.0); Bilirubin,Total 0.7 MG/DL (0.2-1.0); Osmolality,Calculated 288.7 MOS/KG (273-304)
[2019-03-23] MEDS: SPIRONOLACTONE 100 MG TABLET PO SCH (09:13)
[2019-03-23] MEDS: metOLazone 5 MG TABLET PO SCH (09:13)
[2019-03-23] MEDS: THEOPHYLLINE ER (24 HR) 400 MG CAPSULE PO SCH (09:13)
[2019-03-23] MEDS: GABAPENTIN 300 MG CAPSULE PO SCH ×2 (09:13→15:35)
[2019-03-23] MEDS: RIFAXIMIN 550 MG TABLET PO SCH (09:13)
[2019-03-23] MEDS: amLODIPine 10 MG TABLET PO SCH (09:13)
[2019-03-23] MEDS: hydrALAZINE 25 MG TABLET PO SCH ×2 (09:13→15:35)
[2019-03-23 12:22] VITALS: BP 136/74
== END 2019-03-23 15:54 | disposition hospice, home (50) | DRG 194 ==
LOC: N.CC 23:48 → SUATTDRO 03-13 02:00 → N.4E 03-16 01:20
PROVIDERS: ADMIT Internal Medicine; ATTEND Internal Medicine

== ENCOUNTER 2019-03-29 15:00 | Inpatient (IN) ==
[2019-03-29] MEDS ORDERED: ONDANSETRON 4 MG/2 ML VIAL IV PRN (19:51)
[2019-03-29 20:35] LABS: ABG Base Excess -4.1 MMOL/L (-2.5-2.5); ABG HCO3 20.9 MMOL/L (20-26); ABG Oxygen Saturation 90.9 % (95-100); ABG PCO2 49.6 MM HG (35-48); ABG PH 7.272 (7.35-7.45); ABG PO2 65.7 MM HG (80-95); ABG TCO2 21.5 MMOL/L (23-27); Allen Test Positive
[2019-03-29 20:38] LABS: Basophils % 0.3 % (0.0-0.8); Hematocrit 26.2 VOL% (42.0-52.0); Hemoglobin 8.6 GM/DL (14.0-18.0); Immature Granulocytes % 5.3 %; Immature Granulocytes Absolute 0.65 #; Lymphocytes # 0.3 10*3/uL (1.4-4.0); Lymphocytes % 2.7 % (21.2-54.2); Mean Corpuscular HGB Conc 32.8 GM/DL (32-36); Mean Corpuscular Volume 96.7 FL (87-102); Mean Platelet Volume 9.2 FL (9.6-12.0); NRBC # 0.51 10*3/uL; Neutrophils % 77.7 % (38.7-73.9); Platelet Count 283 T/CUMM (130-400); Red Blood Count 2.71 MC/CUMM (3.8-5.5); Red Cell Distribution Width 14.2 % (9.3-17.3); White Blood Count 12.4 T/CUMM (4-12)
[2019-03-29 20:47] LABS: INR 1.1; PT Patient Result 12.3 SECS (9.6-12.2)
[2019-03-29 21:00] LABS: Lymphocytes 2 % (20-55); Nucleated Red Blood Cells 6 (0-5); Polychromasia 1+; Segmented Neutrophils 88 % (50-85); Total Cells Counted 100
[2019-03-29] MEDS ORDERED: PANTOPRAZOLE INJ 80 MG in SODIUM CHLORIDE 0.9% 100 ML IV ONE (21:00)
[2019-03-29] MEDS ORDERED: OCTREOTIDE 100 MCG/ML SYRINGE IV ONE (21:00)
[2019-03-29 21:01] LABS: Macrocytosis 2+; Smudge Cells Moderate
[2019-03-29 21:18] LABS: Albumin 2.6 G/DL (3.4-5.0); Bilirubin,Total 0.5 MG/DL (0.2-1.0); Calcium 8.4 MG/DL (8.5-10.1); Osmolality,Calculated 306.7 MOS/KG (273-304)
[2019-03-29] MEDS ORDERED: GLUCAGON 1 MG VIAL IM PRN ×2 (21:56→22:01)
[2019-03-29] MEDS ORDERED: DEXTROSE 50% 25 GM/50 ML VIAL IV PRN ×2 (21:56→22:01)
[2019-03-29] MEDS ORDERED: INSULIN GLARGINE 100 UNIT/ML SUBCUT SCH (21:59)
[2019-03-29] MEDS ORDERED: PANTOPRAZOLE INJ 200 MG in SODIUM CHLORIDE 0.9% 250 ML IV SCH (22:00)
[2019-03-29] MEDS: LACTULOSE 320 GM/480 ML BOTTLE RECTAL SCH ×2 (23:18→23:31)
[2019-03-29] MEDS: OCTREOTIDE 500 MCG in SODIUM CHLORIDE 0.9% 100 ML IV SCH (23:18)
[2019-03-29] MEDS: INSULIN REGULAR 100 UNIT/ML SUBCUT SCH (23:30)
[2019-03-29] MEDS: DEXTROSE 5% NACL 0.45% 1,000 ML IV SCH (23:31)
[2019-03-29] MEDS: ALBUTEROL/IPRATROPIUM 3 ML NEB RESP TX SCH (23:37)
[2019-03-30] MEDS ORDERED: VECURONIUM 10 MG VIAL IV ONE ×2 (00:36→01:04)
[2019-03-30] MEDS ORDERED: PROPOFOL 1,000 MG/100 ML BOTTLE IV ONE (00:40)
[2019-03-30] MEDS ORDERED: EPINEPHrine 1 MG/10 ML SYRINGE ONE (01:04)
[2019-03-30] MEDS ORDERED: ETOMIDATE 20 MG/10 ML VIAL IV ONE (01:04)
[2019-03-30] MEDS ORDERED: SODIUM BICARBONATE 50 MEQ/50 ML SYRINGE IV ONE (01:04)
[2019-03-30 01:44] LABS: ABG Base Excess -8.4 MMOL/L (-2.5-2.5); ABG HCO3 17.6 MMOL/L (20-26); ABG Oxygen Saturation 97.1 % (95-100); ABG TCO2 21.5 MMOL/L (23-27); Allen Test Positive; Pt O2 Delivery Device Ventilator
[2019-03-30 01:46] LABS: ABG PCO2 71.5 MM HG (35-48); ABG PH 7.099 (7.35-7.45)
[2019-03-30] MEDS ORDERED: SODIUM BICARBONATE 50 MEQ/50 ML VIAL IV ONE ×2 (02:15→04:46)
[2019-03-30] MEDS ORDERED: VANCOMYCIN INJ 1,500 MG in SODIUM CHLORIDE 0.9% 500 ML IV ONE (03:00)
[2019-03-30] MEDS ORDERED: MEROPENEM 1,000 MG in SODIUM CHLORIDE 0.9% 100 ML IV ONE (03:00)
[2019-03-30] MEDS: ALBUTEROL/IPRATROPIUM 3 ML NEB RESP TX SCH ×4 (03:16→15:26)
[2019-03-30 03:18] LABS: ABG Base Excess -6.7 MMOL/L (-2.5-2.5); ABG HCO3 18.8 MMOL/L (20-26); ABG Oxygen Saturation 93.4 % (95-100); ABG PO2 93.1 MM HG (80-95); Allen Test Positive; Pt O2 Delivery Device Ventilator
[2019-03-30] MEDS: PROPOFOL 1,000 MG/100 ML BOTTLE IV SCH ×3 (03:19→12:49)
[2019-03-30] MEDS: LACTULOSE 320 GM/480 ML BOTTLE RECTAL SCH ×7 (03:19→15:53)
[2019-03-30 03:25] LABS: ABG PCO2 82.3 MM HG (35-48); ABG PH 7.079 (7.35-7.45)
[2019-03-30 04:13] LABS: ABG Base Excess -2.3 MMOL/L (-2.5-2.5); ABG HCO3 27.9 MMOL/L (20-26); ABG Oxygen Saturation 93.9 % (95-100); ABG PO2 89.2 MM HG (80-95); ABG TCO2 30.6 MMOL/L (23-27); Allen Test Positive; Pt O2 Delivery Device Ventilator
[2019-03-30 04:20] LABS: ABG PCO2 88.9 MM HG (35-48); ABG PH 7.114 (7.35-7.45)
[2019-03-30] MEDS: OCTREOTIDE 500 MCG in SODIUM CHLORIDE 0.9% 100 ML IV SCH ×3 (04:41→15:12)
[2019-03-30 05:15] LABS: Basophils # 0.1 10*3/uL (0.0-0.2); Basophils % 0.4 % (0.0-0.8); Eosinophils % 0.1 % (0.00-10.9); Hematocrit 24.4 VOL% (42.0-52.0); Hemoglobin 7.8 GM/DL (14.0-18.0); Immature Granulocytes % 7.7 %; Immature Granulocytes Absolute 1.11 #; Lymphocytes # 0.3 10*3/uL (1.4-4.0); Lymphocytes % 2.3 % (21.2-54.2); Mean Corpuscular Volume 98.4 FL (87-102); Mean Platelet Volume 9.5 FL (9.6-12.0); Monocytes % 17.8 % (1.7-12.7); NRBC # 0.94 10*3/uL; Neutrophils % 71.7 % (38.7-73.9); Platelet Count 278 T/CUMM (130-400); Red Blood Count 2.48 MC/CUMM (3.8-5.5); Red Cell Distribution Width 14.5 % (9.3-17.3); White Blood Count 14.4 T/CUMM (4-12)
[2019-03-30 05:31] LABS: Calcium 8.1 MG/DL (8.5-10.1); Osmolality,Calculated 315.2 MOS/KG (273-304)
[2019-03-30 05:50] LABS: Band Neutrophils 8 % (0-10); Lymphocytes 7 % (20-55); Myelocytes 2 %; Nucleated Red Blood Cells 10 (0-5); Segmented Neutrophils 57 % (50-85); Total Cells Counted 100
[2019-03-30 05:51] LABS: Hypochromasia 1+; Ovalocytes Slight; Platelet Estimate Adequate
[2019-03-30 05:52] LABS: Macrocytosis Slight
[2019-03-30 06:11] LABS: ABG Base Excess 0.2 MMOL/L (-2.5-2.5); ABG HCO3 28.4 MMOL/L (20-26); ABG Oxygen Saturation 92.3 % (95-100); ABG PH 7.228 (7.35-7.45); ABG PO2 74.1 MM HG (80-95); ABG TCO2 30.5 MMOL/L (23-27); Glucose Heart Surgery 218 MG/DL (74-106); Hemoglobin Heart Surgery 8.3 G/DL (14.0-18.0); Potassium Heart/CVR 4.7 MMOL/L (3.5-5.1)
[2019-03-30 06:13] LABS: ABG PCO2 69.7 MM HG (35-48)
[2019-03-30] MEDS: INSULIN REGULAR 100 UNIT/ML SUBCUT SCH ×2 (07:21→13:00)
[2019-03-30] MEDS ORDERED: FOLIC ACID INJ 1 MG in SYRINGE 1 EACH IV SCH (09:00)
[2019-03-30] MEDS ORDERED: THIAMINE 200 MG/2 ML VIAL IV SCH (09:00)
[2019-03-30 12:25] LABS: Amorphous Crystals,Urine Occasional /HPF (Few); Apearance,Urine CLOUDY (Clear); Bacteria,Urine Moderate /HPF (Few); Bilirubin,Urine Negative (Negative); Blood, Urine Large mg/dL (Negative); Glucose,Urine (UA) 50 mg/dL (Negative); Ketones,Urine Negative (Negative); Mucus,Urine Occasional /LPF (Occasional); Nitrite,Urine Negative (Negative); Protein,Urine 100 MG/DL; RBC,Urine 533 /HPF (0-4); Urine Color Amber (Yellow); Urine Specific Gravity 1.013 (1.001-1.035); Urine Urobilinogen < 2.0 EU/DL (0.2-1.0); WBC,Urine 30 /HPF (0-6)
[2019-03-30] MEDS: DEXTROSE 5% NACL 0.45% 1,000 ML IV SCH (15:12)
[2019-03-30] MEDS ORDERED: MORPHINE 4 MG/1 ML VIAL IV PRN (15:22)
[2019-03-30] MEDS ORDERED: LORazepam 2 MG/1 ML VIAL IV PRN (15:23)
[2019-03-31] MEDS ORDERED: LACTATED RINGERS 1,000 ML IV SCH (08:00)
== END 2019-03-30 16:02 | disposition expired | DRG 280 ==
LOC: N.ICU
PROVIDERS: ADMIT Internal Medicine; ATTEND Family Medicine